=== PATIENT | female | born 1970 | race Caucasian/White ===

== ENCOUNTER 2024-12-14 08:36 | Outpatient (AMB) | payer MEDICARE, MEDICAID, SELFPAY ==
--- NOTE | 2024-12-14 08:40 | MHC.PC.OV ---
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 care. She notes that she her anxiety, depression, and bipolar symptoms are generally well controlled. She has significant family stressors. She is the caregiver of her parents who have significant illness. She endorses passive SI which is chronic. She thinks she is better off so she does not have to deal with current stressors. She denies suicide plan. She denies HI/AVH. Reports frontal headache which is chronic and occurs daily. She takes ibuprofen as needed. Prior PCP? - Dr. Samson, [facility] Last office visit/CPE/labs - 02/2024 Acute issue(s) -None Past Medical History - IBD, sinusitis, asthma, headaches, myopia, gastric ulcer, memory loss, anxiety, depression, bipolar 1 disorder Surgical History - Left knee ACL and meniscus repair, tubal ligation Family History - Dad: Hypertension, alcohol abuse, non-Hodgkin's lymphoma - PGF: Alcohol abuse, skin cancer - PGM: Alcohol abuse - MGF: Alcohol abuse, diabetes Social History - Smokes 3 cigarettes daily, has been smoking that much x 35 years, on Welbutrin. Does not vape. Drinks 1-2 beers twice weekly.Vapes cannabis nightly for sleep. - Has been making healthy dietary choices. Recently started exercising with stationary bike. Reports difficulty falling and staying asleep, sleeps an average of 2 hours nightly, snores but never had a sleep study, declines sleep study Health maintenance - Last eye exam was over a year ago with [facility]. She will schedule an eye appointment with [facility] - Last dental visit was in May or June 2024 - Last tetanus vaccine unknown - Has not been vaccinated for the flu this season; declines vaccination - Last pap smear test was in 04/26/2022 with [facility]: Negative - Last mammogram was in 10/02/2021 with [facility]: Benign. Mammogram ordered - Last colonoscopy was 4 months ago with [facility]: Normal. Will request colonoscopy record for review Specialists - [facility] - Sees a therapist every other week - Sees a PMHMP via telephone once monthly [facility] Medical History (Updated 12/14/24 @ 09:32 by Robert Phillips CNP) Bipolar 1 disorder Depression Anxiety Memory loss Headache IBS (irritable bowel syndrome) Fibromyalgia Sinusitis Asthma Family History (Updated 12/14/24 @ 09:04 by Mandy Worthy MA) Father Alcohol abuse High blood pressure Hodgkin lymphoma Paternal Grandfather Alcohol abuse Skin cancer Paternal Grandmother Alcohol abuse Maternal Grandfather Alcohol abuse Diabetes Social History (Updated 12/14/24 @ 08:54 by Mandy Worthy MA) Housing: House Patient Tobacco Use Status: Current everyday Tobacco user Cigarettes Per Day: 4 e-Cigarette/Vaping Use: Never Used Second Hand Smoke Exposure: No Substance Use Type: Marijuana service: No Current occupational status: employed Current occupation: [employer] Current occupational exposures/hazards: No Cognitive needs: No Hearing needs: No Vision needs: Yes Questionnaire PHQ-9 Over the last 2 weeks, how often have you been bothered by any of the following problems? 1. Little interest or pleasure in doing things: several days 2. Feeling down, depressed, or hopeless: several days 3. Trouble falling or staying asleep, or sleeping too much: more than half the days 4. Feeling tired or having little energy: more than half the days 5. Poor appetite or overeating: more than half the days 6. Feeling bad about yourself - or that you are a failure or have let yourself or your family down: more than half the days 7. Trouble concentrating on things, such as reading the newspaper or watching television: several days 8. Moving or speaking so slowly that other people could have noticed. Or the opposite - being so fidgety or restless that you have been moving around a lot more than usual: several days 9. Thoughts that you would be better off or of hurting yourself in some way: several days Total score: 13 Depression Screening Interpretation: Positive Depression Screening Follow-up: Existing condition and In treatment Depression Screening Done: Yes 45658 - PHQ-9 Billing: Yes Source: Developed by Drs. Triston Mccallum, Nancy Matthew, Nadir Lerma and colleagues, with an educational alla from [employer]. Thrive Questionnaire Date Thrive assessed: 12/14/24 I am a: Patient What is your living situation today?: I have a steady place to live Within the past 12 months, did the food you bought not last and you didn't have the money to get more?: Sometimes True Within the past 12 months, did you worry whether your food would run out before you got money to buy more?: Sometimes True Do you have trouble paying for medicines?: No Do you have trouble getting transportation to medical appointments?: No Do you have trouble paying your heating and electricity bill?: No Do you have trouble taking care of your child, family member or friend?: No Do you have trouble with day-to-day activities such as bathing, preparing meals, shopping, managing finances, etc.?: No Are you currently unemployed and looking for a job?: Yes Are you interested in more education?: No Please select the resources that you would like help with: None Currently or been in a relationship where the following occur: I choose not to answer THRIVE Score: 2 AUDIT C Alcohol Use Questionnaire (AUDIT-C) 1. How often do you have a drink containing alcohol?: 2-4 times a month 2. How many drinks containing alcohol do you have on a typical day when you are drinking?: 1 or 2 3. How often do you have six or more drinks on one occasion?: Less than monthly Total Score: 3 MARYCRUZ-7 AMB Questionnaire MARYCRUZ-7 Date MARYCRUZ - 7 assessed: 12/14/24 Feeling nervous, anxious, or on edge: 2 = More than half the days Not being able to stop or control worryin = More than half the days Worrying too much about different things: 2 = More than half the days Trouble relaxin = More than half the days Being so restless that it is hard to sit still: 1 = Several days Becoming easily annoyed or irritable: 2 = More than half the days Feeling afraid as if something awful might happen: 1 = Several days Total MARYCRUZ-7 score (0-4 normal; 5-9 mild; 10-14 moderate; 15-21 severe): 12 Source: Developed by Drs. Triston Mccallum, Nancy Matthew, Nadir Lerma and colleagues, with an educational alla from [employer]. ACT Questionnaire In the past 4 weeks, how much of the time did your asthma keep you from getting as much done at work, school or at home?: None of the time During the past 4 weeks, how often have you had shortness of breath?: Not at all During the past 4 weeks, how often did your asthma symptoms wake you up at night or earlier than usual in the morning?: Not at all During the past 4 weeks, how often have you had to use your rescue inhaler or nebulizer medication?: Once a week or less How would you rate your asthma control during the past 4 weeks?: Somewhat controlled ACT Interpretation: Negative Score: 22 Review of Systems Const Details: Denies chills, Denies fatigue, Denies fever(s), Reports headache(s) and Denies weakness HEENT Denies change in vision, Denies dizziness, Denies headache(s), Denies hearing loss, Denies nasal congestion, Denies sinus pain, Denies sinus pressure and Denies sore throat Card Denies chest pain, Denies lightheadedness, Denies dyspnea and Denies other (palpitations) Resp Denies cough, Denies dyspnea and Denies wheezing GI Denies abdominal pain, Denies melena, Denies hematochezia, Denies change in bowel habits, Denies dyspepsia and Denies nausea Denies hematuria and Denies dysuria Musc Denies abnormal gait, Denies myalgias, Denies arthralgias, Denies numbness and Denies tingling Skin/Breast Denies rash, Denies unusual bruising and Denies wounds Neuro Denies abnormal gait, Denies dizziness, Reports headache(s), Denies memory loss, Denies numbness, Denies Sensory deficit (Neuro), Denies tingling and Denies weakness Psych Denies anxiety, Denies depression and Denies memory loss Endo Denies cold intolerance, Denies fatigue, Denies heat intolerance, Denies polydipsia and Denies polyuria Waqas/Lymph Denies easy bleeding and Denies easy bruising Aller/Immun Denies wheezing Physical exam (Primary Care) Vital Signs: Last Vital Signs Temp 98.0 F 12/14/24 09:01 Pulse 92 12/14/24 09:01 Resp 16 12/14/24 09:01 BP 137/76 12/14/24 09:01 Pulse Ox 97 12/14/24 09:01 Oxygen Delivery Method Room Air 12/14/24 09:01 BMI result Body Mass Index 30.4 Tobacco/Smoking Status: Tobacco use Status Tobacco use date assessed 12/14/24 12/14/24 09:05 Patient Tobacco Use Status Current everyday Tobacco 12/14/24 09:05 e-Cigarette/Vaping Use Never Used 12/14/24 09:05 PHQ-9: PHQ-9 Score PHQ-9: Total score 13 12/14/24 09:35 Depression Screening Interpretation: Positive Depression Screening Follow-up: Existing condition and In treatment Thrive Assessment: Date of Thrive Assessment Date Thrive assessed 12/14/24 12/14/24 09:05 Currently or been in a relationship where the following occur: I choose not to answer Const Other: General: no acute distress, well developed, alert and awake Nutritional Appearance: well nourished Orientation/consciousness: patient oriented x3 HENMT Head: Yes normocephalic and Yes atraumatic Ears: hearing grossly normal bilaterally and TM's normal bilaterally General nose exam: Normal external nose present and Normal nares present Mouth: Normal oral and palatal mucosa present and moist mucous membranes Teeth and gingiva: dentition normal Throat: Yes oropharynx normal Eyes Pupils: Equal, round and reactive pupils present and Pupil accommodation reflex normal EOM: EOMs intact bilaterally Neck Neck: Yes normal visual inspection, Yes no lymphadenopathy and Yes trachea midline Thyroid: Thyroid normal Carotids: no bruits Lymphatic: no lymphadenopathy noted Chest Chest palpation & inspection: normal inspection of the chest Resp Effort & Inspection: normal respiratory effort Auscultation: clear to auscultation bilaterally Cardio Rate: regular rate Rhythm: regular rhythm Heart sounds: S1 normal heart sound present, S2 normal heart sound present, no gallops, no murmurs and no rubs Bruits: no abdominal aortic bruits and no carotid bruits GI Palpation (GI): No Abdominal aortic bruit present, Soft to palpation, nontender, No hepatosplenomegaly present and No Rebound tenderness present Auscultation: normal bowel sounds General: Yes no CVA tenderness Back/Spine/Pelvis Back: no CVA tenderness Cervical Spine: cervical ROM normal and No Cervical spine tenderness Thoracic/Lumbar Spine: thoraco-lumbar ROM normal, No pain with thoraco-lumbar ROM, No thoracic spinal tenderness and No lumbar spinal tenderness Skin General: warm and dry. Normal skin color. Normal skin turgor Lesions: no lesions Rashes: no rashes Trauma: no lacerations or abrasions Wounds: no wounds Nails: normal Neuro General: patient oriented x3, gait normal and CN's II-XI intact bilaterally Cranial nerves: Yes Equal, round and reactive pupils present Cognition (Neuro): normal cognition Gait exam (Neuro): Normal gait present Motor exam (neuro): 5/5 motor strength present throughout Sensory Exam: No Sensory deficit (Neuro) Deep tendon reflexes (DTR's): Right patellar reflex intensity grade: 2+ and Left patellar reflex intensity grade: 2+ Extrem General: Yes normal to inspection, No edema and No calf tenderness Psych Appearance: grossly normal Affect: normal affect Attitude: cooperative Thought process: Normal thought process present Coding Level of Care Code New Pt Level 3 (45935) New Pt Prev Care 40-64y(41429) Diagnoses Normal physical examination, routine Z00.00 Headache R51.9 Breast cancer screening by mammogram Z12.31 Myopia H52.10 Anxiety F41.9 Depression F32.A Bipolar 1 disorder F31.9 Sleep disturbance G47.9 Smoking 1/2 pack a day or less F17.210 Laboratory tests ordered as part of a complete physical exam (CPE) Z00.00 Additional Codes Asthma Control Questionnaire - ACT Interpretation: Negative ([id number]) PHQ-9 - 85467 - PHQ-9 Billing: Yes ([id number]) Assessment & Plan Assessment & Plan (1) Normal physical examination, routine: Code(s): Z00.00 - Encounter for general adult medical examination without abnormal findings Category: Medical Plan: No significant functional limitations noted except slightly abnormal tandem gait. Continue current treatment regimen. Healthy diet and routine exercise encouraged. Perform lab work and follow-up for a telehealth visit for labs review in 2-4 weeks. Return sooner with symptoms or concerns. Verbalized understanding and agreed with the plan. (2) Headache: Code(s): R51.9 - Headache, unspecified Category: Medical Plan: Reports frontal headache which is chronic and occurs daily. She takes ibuprofen as needed. May take Tylenol or ibuprofen as needed. Follow-up with worsening or new symptoms. Verbalized understanding and agreed with the plan. (3) Breast cancer screening by mammogram: Code(s): Z12.31 - Encounter for screening mammogram for malignant neoplasm of breast Category: Medical Plan: Last mammogram was 1.5 year ago with [facility]: Benign. Mammogram ordered. (4) Myopia: Code(s): H52.10 - Myopia, unspecified eye Category: Medical Plan: Last eye exam was over a year ago with [facility]. She will schedule an eye appointment with [facility]. (5) Anxiety: Code(s): F41.9 - Anxiety disorder, unspecified Category: Medical Plan: She notes that she her anxiety, depression, and bipolar symptoms are generally well controlled. She has significant family stressors. She is the caregiver of her parents who have significant illness. She endorses passive SI which is chronic. She thinks she is better off so she does not have to deal with current stressors. She denies suicide plan. She denies HI/AVH. PHQ-9 and MARYCRUZ-7 scores revealed moderate depression and anxiety. Continue current treatment regimen. Routine exercise encouraged. Follow-up with psychiatrist and therapist as planned. Verbalized understanding and agreed with the plan. (6) Depression: Code(s): F32.A - Depression, unspecified Category: Medical Plan: Plan as above. (7) Bipolar 1 disorder: Code(s): F31.9 - Bipolar disorder, unspecified Category: Medical Plan: Plan as above. (8) Sleep disturbance: Code(s): G47.9 - Sleep disorder, unspecified Category: Medical Plan: Reports difficulty falling and staying asleep. She sleeps an average of 2 hours nightly. She snores but never had a sleep study. Declines sleep study. Instructed on sleep hygiene. Follow-up as needed. Verbalized understanding and agreed with the plan. (9) Smoking 1/2 pack a day or less: Code(s): F17.210 - Nicotine dependence, cigarettes, uncomplicated Category: Social Hx Plan: She smokes 3 cigarettes daily and has been smoking that much x 35 years. She is on Wellbutrin 300 mg daily which she notes helps with smoking cessation. Instructed on the health risks and complications of smoking and cessation encouraged. Follow-up as needed. Verbalized understanding and agreed with the plan. (10) Laboratory tests ordered as part of a complete physical exam (CPE): Code(s): Z00.00 - Encounter for general adult medical examination without abnormal findings Category: Medical Plan: Fasting labs ordered as part of a complete physical exam. Advised to fast for at least 10 hours before getting labs drawn. May drink water Verbalized understanding and agreed with treatment plan. Orders: Orders Complete Blood Count Auto Diff Today Z00.00 - Encounter for general adult medical examination without abnormal findings Comprehensive [place]. Panel Fast Today Z00.00 - Encounter for general adult medical examination without abnormal findings TSH reflex Free T4 Today Z00.00 - Encounter for general adult medical examination without abnormal findings Lipid Panel Today Z00.00 - Encounter for general adult medical examination without abnormal findings Microalbumin, Random (w Creat) Today Z00.00 - Encounter for general adult medical examination without abnormal findings UA CC w/rflx Micro + Cult Today Z00.00 - Encounter for general adult medical examination without abnormal findings Vitamin D 25-OH Total Today Z00.00 - Encounter for general adult medical examination without abnormal findings MM screening mammo BI Today Z12.31 - Encounter for screening mammogram for malignant neoplasm of breast
[2024-12-14 09:01] VITALS: BP 137/76; PULSE 92; RESP 16; TEMP 36.7; O2SAT 97; BMI 30.4
--- OUTSIDE RECORDS SUMMARY | 2024-12-14 10:19 | XMS_ITS | Clinical Summary ---
Author Organization [facility] Address [address] [place] [id number] Phone Care Team Providers Care Director Medicare Sales Name Role Phone Lev Samson MD Primary Care Provider [phone] Allergies Active Allergy Reactions Criticality Noted Date Comments Penicillin Anaphylaxis High 08/28/2022 Medications acetic acid (VOSOL) 2 % otic solution instill 5 DROPS into BOTH EAR THREE TIMES DAILY FOR 7 DAYS 08/23/19 23 Active albuterol 2.5 mg /3 mL (0.083 %) nebulizer solution albuterol sulfate 2.5 mg/3 mL (0.083 %) solution for nebulization INHALE 1 VIAL VIA NEBULIZATION 3 TIMES A DAY NEEDED Active baclofen (LIORESAL) 20 MG tablet baclofen 20 mg tablet TAKE 1 TABLET BY MOUTH ONCE DAILY AT BEDTIME 09/11/19 22 Active cholecalcifero l (VITAMIN D3) 50,000 unit capsule cholecalciferol (vitamin D3) 1,250 mcg (50,000 unit) capsule TAKE 1 CAPSULE BY MOUTH every WEEK Active clonazePAM (KLONOPIN) 1 MG tablet clonazepam 1 mg tablet TAKE 1 TABLET BY MOUTH THREE TIMES DAILY NEEDED FOR ANXIETY 08/21/19 23 Active cyanocobalamin , vitamin B-12, 1000 MCG tablet cyanocobalamin (vit B-12) 1,000 mcg tablet TAKE 1 TABLET BY MOUTH ONCE DAILY Active divalproex (DEPAKOTE ER) 250 MG ER 24 hr tablet divalproex ER 250 mg tablet,extended release 24 hr TAKE 3 TABLETS BY MOUTH ONCE DAILY 08/21/19 23 Active DULoxetine (CYMBALTA) 30 MG capsule Take 2 capsules by mouth every morning. 08/21/19 23 Active fluticasone propionate (FLONASE) 50 mcg/actuation nasal spray fluticasone propionate 50 mcg/actuation nasal spray,suspension instill 2 SPRAYS IN BOTH nostrils DAILY IN THE am 03/07/20 21 Active montelukast (SINGULAIR) 10 mg tablet Take 10 mg by mouth. 09/11/19 22 Active naproxen (EC NAPROSYN) 500 MG EC tablet Take 500 mg by mouth. 12/27/19 22 Active nitrofurantoin (MACROBID) 100 MG capsule TAKE 1 CAPSULE BY MOUTH TWICE DAILY FOR 5 DAYS WITH food 08/17/19 23 Active traZODone (DESYREL) 100 MG tablet trazodone 100 mg tablet TAKE 3 TABLETS BY MOUTH DAILY AT BEDTIME 08/21/19 23 Active loratadine (CLARITIN) 10 mg tablet Take 10 mg by mouth daily. Active Active Problems Problem Noted Date Diagnosed Date Alcohol abuse 08/28/2022 08/28/2022 Allergic rhinitis 08/28/2022 08/28/2022 Anemia 08/28/2022 08/28/2022 Anxiety 08/28/2022 08/28/2022 Asthma 08/28/2022 08/28/2022 Benign neoplasm of meninges 08/28/202207/31 Cobalamin deficiency 08/28/2022 08/28/2022 Depressive disorder 08/28/2022 08/28/2022 Fatty liver 08/28/2022 08/28/2022 Fibromyalgia 08/28/2022 08/28/2022 Gastroesophageal reflux disease 08/28/2022 08/28/2022 Gastritis 08/28/2022 08/28/2022 Gastroparesis 08/28/2022 08/28/2022 Vitamin D deficiency 08/28/2022 08/28/2022 Tobacco user 08/28/2022 08/28/2022 Posttraumatic stress disorder 08/28/2022 Neuropathic pain 08/28/2022 08/28/2022 Migraine 08/28/2022 08/28/2022 Manic bipolar I disorder 08/28/2022 023 Irritable bowel 08/28/2022 08/28/2022 Social History Tobacco Use Types Packs/Day Years Used Date Smoking Tobacco: Every Day Cigarettes Smokeless Tobacco: Never Tobacco Cessation:Ready to Q uit: Not Asked; Counseling Given: Not Answered Education Answer Date Recorded Are you interested in more education? Not on halley e 08/28/2022 Are you concerned about learning? Not on file 08/28/2022 No 08/28/2022 No 08/28/2022 Digital Access Answer Date Recorded No 08/28/2022 No 08/28/2022 Reliable internet access at home? Not on file 08/28/2022 Device with a working camera? Not on file Comments Unknown Sex and Gender Information Value Date Recorded Sex Assigned at Not on file Legal Sex Female 5:33 PM EST Gender Identity Not on file Sexual Orientation Not on file Last Filed Vital Signs Vital Sign Reading Time Taken Comments Blood Pressure 132/96 01/31/2023 6:23 PM EDT Pulse 77 01/31/2023 6:23 PM EDT Temperature 36.4 C (97.6 F) 01/31/2023 6:23 PM EDT Respiratory Rate 16 01/31/2023 6:23 PM EDT Oxygen Saturation 100% 01/31/2023 6:23 PM EDT Inhaled Oxygen Concentration - - Weight 65.8 kg (145 lb) 08/28/2022 12:36 PM EDT Height 162.6 cm (5' 4 ) 08/28/2022 12:36 PM EDT Body Mass Index 24.89 08/28/2022 12:36 PM EDT Plan of Treatment Health Maintenance Due Date Last Done Comments Adult Td,Tdap Booster 1971 LIPID PANEL 1971 VALPROIC ACID (DEPAKENE) LEVEL 1971 DEPRESSION SCREENING 1983 SMOKING Hx and SMOKELESS TOB ACCO SCREENING 02/13/1984 HEPATITIS C SCREENING 1989 HIV ONE-TIME SCREENING (18-6 5 YEARS) 1989 PNEUMOCOCCAL VACCINES (50+ y ears) (1 of 2 - PCV) 1990 PAP SMEAR 02/13/1992 MAMMOGRAM 2011 COLOGUARD 02/13/2016 COLONOSCOPY 02/13/2016 COLORECTAL CANCER SCREENING 02/13/2016 FIT TEST 02/13/2016 FOBT 02/13/2016 SIGMOIDOSCOPY 02/13/2016 VIRTUAL COLONOSCOPY 02/13/2016 ZOSTER VACCINES (1 of 2) 2021 INFLUENZA VACCINE (#1) 2024 COVID-19 VACCINE (2023-2 5 season) 2024 HEPATITIS A VACCINES Aged Out No long er eligible based on patient's age to complete this topic HIB VACCINES Aged Out No longer eligi ble based on patient's age to complete this topic MENINGOCOCCAL VACCINES (ACWY) Aged Out No longer eligible based on patient's age to complete this topic MENINGOCOCCAL VACCINES (B) Aged Out N o longer eligible based on patient's age to complete this topic Medical Devices Not on file Insurance [facility] & [facility] & B [facility] A & [facility] PART [facility] B [facility] MEDIC[facility] PART A & B [facility] MEDIC[facility] PART A & B Care Teams Director Medicare Sales Relationship Specialty Start Date End Date Lev Samson MD [address] [place] [id number] PCP - General Internal Medicine 08/28/22 Additional Source Comments The information contained in this document represents components of the legal health record. It is not the complete legal health record.[facility]
== END 2024-12-14 09:35 | disposition home or self-care (01) ==
LOC: HO.HMCFM 08:37
PROVIDERS: PCP Nurse Practitioner Family; Visit Provider Nurse Practitioner Family
DX: R51.9 Headache, unspecified (principal); F31.9 Bipolar disorder, unspecified; F41.9 Anxiety disorder, unspecified; Z12.31 Encounter for screening mammogram for malignant neoplasm of breast; G47.9 Sleep disorder, unspecified; H52.10 Myopia, unspecified eye; F32.A Depression, unspecified; F17.210 Nicotine dependence, cigarettes, uncomplicated

== ENCOUNTER 2024-12-14 08:36 | Outpatient (REF) | payer MEDICARE, SELFPAY ==
[2024-12-14 11:46] LABS: MANUAL DIFF FLAG NO
[2024-12-14 11:54] LABS: Hematocrit 39.0 % (37.0-47.0); Hemoglobin 13.8 g/dl (12.0-16.0); Imm Gran Abs Auto 0.01 X10*3/uL (0.00-0.03); Imm Gran Pct Auto 0.2 % (0.0-0.4); Lymphocytes Absolute Auto 1.4 X10*3/uL (1.2-4.9); Mean Corpuscular HGB Conc 35.4 g/dl (31.0-35.0); Mean Corpuscular Hemoglobin 33.1 pg (27.0-33.0); Mean Corpuscular Volume 93.5 fL (80.0-98.0); NRBC Abs Auto 0.000 X10*3/uL (0.0-0.012); NRBC Pct Auto 0.0 /100WBC (0.0-0.2); Platelet Count 289 X10*3/uL (160-400); Red Blood Count 4.17 X10*6/uL (4.20-5.50); White Blood Count 4.3 X10*3/uL (4.8-10.8)
[2024-12-14 12:47] LABS: Alanine Aminotransferase 31 U/L (0-31); Albumin Level 4.7 g/dL (3.5-5.0); Alkaline Phosphatase 108 U/L (39-117); Anion Gap 12 (12-20); Aspartate Amino Transferase 32 U/L (5-31); Blood Urea Nitrogen 8 mg/dL (9-16); Calcium 9.9 mg/dL (8.4-10.2); Carbon Dioxide 32 mmol/L (22-29); Chloride 100 mmol/L (96-108); Cholesterol 203 mg/dL (<200); Estimated Glomerular Filt Rate > 60; HDL Cholesterol 73 mg/dL (>40); Potassium 4.3 mmol/L (3.3-5.1); Sodium 140 mmol/L (135-145); Total Protein 7.4 g/dL (6.5-8.0); Triglycerides 60 mg/dL (<150)
[2024-12-14 14:54] LABS: Appearance Urine Clear; Glucose Urine UA Negative (Negative); PH 8.0 (5.0-9.0); Specific Gravity - Urine <= 1.005 (1.005-1.025)
== END 2024-12-14 08:37 | disposition home or self-care (01) ==
LOC: HO.WFDLDS 08:36
PROVIDERS: PCP Nurse Practitioner Family; Visit Provider Nurse Practitioner Family
DX: Z00.00 Encounter for general adult medical examination without abnormal findings (principal); Z13.6 Encounter for screening for cardiovascular disorders; R51.9 Headache, unspecified; H52.10 Myopia, unspecified eye; F41.9 Anxiety disorder, unspecified; F32.A Depression, unspecified; G47.9 Sleep disorder, unspecified; F17.210 Nicotine dependence, cigarettes, uncomplicated; Z71.6 Tobacco abuse counseling
CPT/HCPCS: 36415; 80053; 80061; 81003; 82043; 82306; 82570; 84443; 85025; 96127; 96160; 99202

== ENCOUNTER 2025-01-03 10:01 | Outpatient (AMB) | payer MEDICARE, MEDICAID, SELFPAY ==
--- NOTE | 2025-01-03 10:16 | A.OFFPC_ITS ---
Vital Signs 01/03/25 10:22 Height 5 ft 4 in Weight 177 lb 2 oz BMI 30.4 BP 138/77 Blood Pressure Location Rt brachial Position Sitting Respiration 16 Pulse 75 Pulse Source Pulse Oximeter Temp 97.9 F Temp Source Oral Pulse Oximetry (%) 98 Oxygen Delivery Method Room Air Intake Visit Reasons: Tele 2-4 wks labs review Intake Note: patient here for 2-4 wks labs review Information Services Consultant Required: No Is last menstrual period known: No Post menopausal: No Patient : No Allergies No Known Allergies Allergy (Verified 01/03/25 10:21) Tobacco use date assessed: 01/03/25 Dental Screening Dental Screen Date: 01/03/25 Did you have a dental visit in the last 12 months?: Yes Did you have a dental problem in the last 6 months where you did not have access to dental care?: No Was dental information given to patient?: Patient has dentist HPI HPI Comments History of Present Illness Details 54-year-old female presents for review of recent lab results. She admits to taking her medications as prescribed without adverse reactions. Reports pain to Dupuytren's contracture of the left hand; she went to an orthopedic urgent care 2 days ago and received cortisone injection. She is followed by [facility] and will call them to schedule a follow-up appointment. [facility] Medical History (Updated 01/03/25 @ 10:17 by Robert Phillips CNP) Bipolar 1 disorder Depression Anxiety Memory loss Headache IBS (irritable bowel syndrome) Fibromyalgia Sinusitis Asthma Family History (Updated 12/14/24 @ 09:04 by Mandy Worthy MA) Father Alcohol abuse High blood pressure Hodgkin lymphoma Paternal Grandfather Alcohol abuse Skin cancer Paternal Grandmother Alcohol abuse Maternal Grandfather Alcohol abuse Diabetes Social History (Updated 12/14/24 @ 08:54 by Mandy Worthy MA) Housing: House Patient Tobacco Use Status: Current everyday Tobacco user Cigarettes Per Day: 4 e-Cigarette/Vaping Use: Never Used Second Hand Smoke Exposure: No Substance Use Type: Marijuana service: No Current occupational status: employed Current occupation: [employer] Current occupational exposures/hazards: No Cognitive needs: No Hearing needs: No Vision needs: Yes Questionnaire Thrive Questionnaire Date Thrive assessed: 12/14/24 I am a: Patient What is your living situation today?: I have a steady place to live Within the past 12 months, did the food you bought not last and you didn't have the money to get more?: Sometimes True Within the past 12 months, did you worry whether your food would run out before you got money to buy more?: Sometimes True Do you have trouble paying for medicines?: No Do you have trouble getting transportation to medical appointments?: No Do you have trouble paying your heating and electricity bill?: No Do you have trouble taking care of your child, family member or friend?: No Do you have trouble with day-to-day activities such as bathing, preparing meals, shopping, managing finances, etc.?: No Are you currently unemployed and looking for a job?: Yes Are you interested in more education?: No Please select the resources that you would like help with: None Currently or been in a relationship where the following occur: I choose not to answer THRIVE Score: 2 MARYCRUZ-7 AMB Questionnaire MARYCRUZ-7 Date MARYCRUZ - 7 assessed: 12/14/24 Source: Developed by Drs. Triston Mccallum, Nancy Matthew, Nadir Lerma and colleagues, with an educational alla from [employer]. Review of Systems Const Details: Const Denies chills, Denies fatigue, Denies fever(s), Denies headache(s) and Denies weakness ENT Denies dizziness and Denies headache(s) Card Denies chest pain, Denies lightheadedness, Denies dyspnea and Denies other (Palpitations) Resp Denies cough, Denies dyspnea, Denies wheezing and Denies other ( shortness of breath) GI Denies abdominal pain, Denies melena, Denies hematochezia, Denies change in bowel habits, Denies dyspepsia and Denies nausea Denies hematuria and Denies dysuria Musc Reports as per HPI Skin/Breast Denies rash, Denies unusual bruising and Denies wounds Neuro Denies abnormal gait, Denies dizziness, Denies headache(s), Denies memory loss, Denies numbness, Denies Sensory deficit (Neuro), Denies tingling and Denies weakness Psych Denies anxiety, Denies depression, Denies memory loss Endo Denies cold intolerance, Denies fatigue, Denies heat intolerance, Denies polydipsia and Denies polyuria Aller/Immun Denies wheezing Physical exam (Primary Care) Tobacco/Smoking Status: Tobacco use Status Tobacco use date assessed 12/14/24 12/14/24 09:05 Patient Tobacco Use Status Current everyday Tobacco 12/14/24 09:05 e-Cigarette/Vaping Use Never Used 12/14/24 09:05 Thrive Assessment: Date of Thrive Assessment Date Thrive assessed 12/14/24 12/14/24 09:05 Currently or been in a relationship where the following occur: I choose not to answer Const Other: General: no acute distress and well developed Nutritional Appearance: well nourished Orientation/consciousness: patient oriented x3 HENMT Head: Yes normocephalic and Yes atraumatic Eyes General: appearance normal, both eyes and all related structures Pupils: Equal, round and reactive pupils present EOM: EOMs intact bilaterally Resp Effort & Inspection: normal respiratory effort Auscultation: clear to auscultation bilaterally Cardio Rate: regular rate Rhythm: regular rhythm Heart sounds: S1 normal heart sound present, S2 normal heart sound present, no gallops, no murmurs and no rubs GI Palpation (GI): No Abdominal aortic bruit present, Soft to palpation, nontender, No hepatosplenomegaly present and No Rebound tenderness present Auscultation: normal bowel sounds General: Yes no CVA tenderness Back/Spine/Pelvis Back: no CVA tenderness Cervical Spine: cervical ROM normal and No Cervical spine tenderness Thoracic/Lumbar Spine: thoraco-lumbar ROM normal, No pain with thoraco-lumbar ROM, No thoracic spinal tenderness and No lumbar spinal tenderness Extrem General: Yes normal to inspection, No edema and No calf tenderness Skin General: warm and dry. Normal skin color. Normal skin turgor Neuro General: patient oriented x3, gait normal and no focal neuro deficit Cranial nerves: Yes Equal, round and reactive pupils present Cognition (Neuro): normal cognition Gait exam (Neuro): Normal gait present Sensory Exam: No Sensory deficit (Neuro) Psych Appearance: grossly normal Affect: normal affect Attitude: cooperative Thought process: Normal thought process present Coding Level of Care Code Est Pt Level 3 (20427) Diagnoses Hypercholesterolemia E78.00 Elevated AST (SGOT) R74.01 Leukocytopenia D72.819 Assessment & Plan Assessment & Plan (1) Hypercholesterolemia: Code(s): E78.00 - Pure hypercholesterolemia, unspecified Category: Medical Plan: Recent total cholesterol and LDL levels a slightly elevated, 203 and 118 respectively, triglycerides and HDL levels are normal. Advised to limit foods high in saturated fat and avoid foods high in trans fat. Routine exercise encouraged. Fast for 10-12 hours, may drink water, and performed lipid panel blood work a few days before next visit. Follow-up for telehealth visit in 2 months. Return sooner with symptoms or concerns. Verbalized understanding and agreed with the plan. (2) Elevated AST (SGOT): Code(s): R74.01 - Elevation of levels of liver transaminase levels Category: Medical Plan: Recent AST level is slightly elevated, 32, normal ALT and bilirubin level. She reports slightly elevated AST since she started taking Depakote. Healthy diet/weight management encouraged. Will recheck liver panel in 2 months. Verbalized understanding and agreed with the plan. (3) Leukocytopenia: Code(s): D72.819 - Decreased white blood cell count, unspecified Category: Medical Plan: Recent WBC slightly low, 4.3. CBC is otherwise unrevealing. Will monitor CBC annually as needed. Verbalized understanding and agreed with the plan.
[2025-01-03 10:22] VITALS: BP 138/77; PULSE 75; RESP 16; TEMP 36.6; O2SAT 98; BMI 30.4
--- OUTSIDE RECORDS SUMMARY | 2025-01-03 11:39 | XMS_ITS | Clinical Summary ---
Author Organization [facility] Address [address] [place] [id number] Phone Care Team Providers Care Esthetician And Manager Medical Spa Name Role Phone Lev Samson MD Primary Care Provider [phone] Allergies Active Allergy Reactions Criticality Noted Date [...] topic Medical Devices Not on file Insurance [facility] & B [facility] PART [facility] & B [facility] PART A & B [facility] PART A & B [facility] MEDIC[facility] PART A & B [facility] MEDICARE PART A & B Care Teams Esthetician And Manager Medical Spa Relationship Specialty Start Date End Date Lev Samson MD [address] [place] [id number] PCP - General Internal Medicine 08/28/22 Additional Source Comments The information contained in this document represents components of the legal health record. It is not the complete legal health record.[facility]
== END 2025-01-03 12:27 | disposition home or self-care (01) ==
LOC: HO.HMCFM 10:02
PROVIDERS: PCP Nurse Practitioner Family; Visit Provider Nurse Practitioner Family
DX: E78.00 Pure hypercholesterolemia, unspecified (principal); R74.01 Elevation of levels of liver transaminase levels; D72.819 Decreased white blood cell count, unspecified

== ENCOUNTER → 2025-01-03 10:01 | Outpatient (BNVA) | payer MEDICARE, SELFPAY | PROVIDERS: PCP Nurse Practitioner Family; Visit Provider Nurse Practitioner Family | DX: M72.0 Palmar fascial fibromatosis [Dupuytren] (principal); E78.00 Pure hypercholesterolemia, unspecified; R74.01 Elevation of levels of liver transaminase levels; D72.819 Decreased white blood cell count, unspecified | CPT/HCPCS: 99212 ==

== ENCOUNTER 2025-03-14 11:37 | Outpatient (AMB) | payer MEDICARE, MEDICAID, SELFPAY ==
--- NOTE | 2025-03-14 11:47 | MHC.PC.OV ---
Vital Signs 03/14/25 11:48 Height 5 ft 4 in Weight 173 lb BMI 29.7 BP 116/80 Blood Pressure Location Rt brachial Position Sitting Respiration 14 Pulse 81 Pulse Source Pulse Oximeter Temp 97.7 F Temp Source Oral Pulse Oximetry (%) 97 Oxygen Delivery Method Room Air Intake Visit Reasons: 2 months hypercholesterolemia, elevated AST Intake Note: Two month follow up Dolphin Researcher Required: No Allergies Penicillins Allergy (Unknown, Verified 03/14/25 11:51) Unknown Tobacco use date assessed: 03/14/25 Dental Screening Dental Screen Date: 01/03/25 HPI HPI Comments History of Present Illness Details 55-year-old female presents for hypercholesterolemia, and elevated AST follow-up. She admits to taking her medications as prescribed without adverse reactions. Lipid and liver panel labs were inadvertently not ordered and therefore were done. She has been fasting for at least 10 hours and perform blood work after this visit. She notes that she presented to [facility] on 01/29/2025 for for suicide attempt by taking more than prescribed prescription medications and drinking significant amout of alcohol. She was transferred to [facility] where she was hospitalized for 2 and a half week. She was discharged after some medication changes. Also, she was started on vivitrol which she has been getting IM monthly. She established with a psychiatrist with [facility] and is scheduled to have vivitrol injection with them on this week. She attends group therapy at [facility] three times weekly. She notes that she feels same, anxious, depressed, since discharged from [facility]. She finds the group helpful. She notes that her anxiety and depression will always be the same, moderate to high. She denies SI/HI/AVH at this time. [facility] Medical History (Updated 01/03/25 @ 10:17 by Robert Phillips CNP) Bipolar 1 disorder Depression Anxiety Memory loss Headache IBS (irritable bowel syndrome) Fibromyalgia Sinusitis Asthma Family History (Updated 12/14/24 @ 09:04 by ANDREA Mcgee) Father Alcohol abuse High blood pressure Hodgkin lymphoma Paternal Grandfather Alcohol abuse Skin cancer Paternal Grandmother Alcohol abuse Maternal Grandfather Alcohol abuse Diabetes Social History (Updated 12/14/24 @ 08:54 by ANDREA Mcgee) Housing: House Patient Tobacco Use Status: Current everyday Tobacco user Cigarettes Per Day: 4 Years Smoked: unknown ( A long time ) e-Cigarette/Vaping Use: Never Used Second Hand Smoke Exposure: No Substance Use Type: Marijuana service: No Current occupational status: employed Current occupation: [employer] Current occupational exposures/hazards: No Cognitive needs: No Hearing needs: No Vision needs: Yes Questionnaire PHQ-9 Over the last 2 weeks, how often have you been bothered by any of the following problems? 1. Little interest or pleasure in doing things: nearly every day 2. Feeling down, depressed, or hopeless: nearly every day 3. Trouble falling or staying asleep, or sleeping too much: nearly every day 4. Feeling tired or having little energy: nearly every day 5. Poor appetite or overeating: nearly every day 6. Feeling bad about yourself - or that you are a failure or have let yourself or your family down: nearly every day 7. Trouble concentrating on things, such as reading the newspaper or watching television: several days 8. Moving or speaking so slowly that other people could have noticed. Or the opposite - being so fidgety or restless that you have been moving around a lot more than usual: not at all 9. Thoughts that you would be better off or of hurting yourself in some way: not at all (when pt was in the hospital) Total score: 19 Depression Screening Interpretation: Positive Depression Screening Follow-up: Existing condition and In treatment Depression Screening Done: Yes 44130 - PHQ-9 Billing: Yes Source: Developed by Drs. Triston Mccallum, Nancy Matthew, Nadir Lerma and colleagues, with an educational alla from [employer]. Thrive Questionnaire Date Thrive assessed: 12/14/24 I am a: Patient What is your living situation today?: I have a steady place to live Within the past 12 months, did the food you bought not last and you didn't have the money to get more?: Sometimes True Within the past 12 months, did you worry whether your food would run out before you got money to buy more?: Sometimes True Do you have trouble paying for medicines?: No Do you have trouble getting transportation to medical appointments?: No Do you have trouble paying your heating and electricity bill?: No Do you have trouble taking care of your child, family member or friend?: No Do you have trouble with day-to-day activities such as bathing, preparing meals, shopping, managing finances, etc.?: No Are you currently unemployed and looking for a job?: Yes Are you interested in more education?: No Please select the resources that you would like help with: None Currently or been in a relationship where the following occur: I choose not to answer THRIVE Score: 2 AUDIT C Alcohol Use Questionnaire (AUDIT-C) 1. How often do you have a drink containing alcohol?: Never (stopped drinking January 29 2025) 3. How often do you have six or more drinks on one occasion?: Never Total Score: 0 MARYCRUZ-7 AMB Questionnaire MARYCRUZ-7 Date MARYCRUZ - 7 assessed: 03/14/25 Feeling nervous, anxious, or on edge: 3 = Nearly every day Not being able to stop or control worryin = Nearly every day Worrying too much about different things: 3 = Nearly every day Trouble relaxin = Not at all Being so restless that it is hard to sit still: 0 = Not at all Becoming easily annoyed or irritable: 1 = Several days Feeling afraid as if something awful might happen: 1 = Several days Total MARYCRUZ-7 score (0-4 normal; 5-9 mild; 10-14 moderate; 15-21 severe): 11 Source: Developed by Drs. Triston Mccallum, Nancy Matthew, Nadir Lerma and colleagues, with an educational alla from [employer]. MARYCRUZ-7 Assessment Billing MARYCRUZ-7 Assessment Tool: MARYCRUZ-7 Assessment 18710 Review of Systems Const Details: Const Denies chills, Denies fatigue, Denies fever(s), Denies headache(s) and Denies weakness ENT Denies dizziness and Denies headache(s) Card Denies chest pain, Denies lightheadedness, Denies dyspnea and Denies other (Palpitations) Resp Denies cough, Denies dyspnea, Denies wheezing and Denies other ( shortness of breath) GI Denies abdominal pain, Denies melena, Denies hematochezia, Denies change in bowel habits, Denies dyspepsia and Denies nausea Denies hematuria and Denies dysuria Musc Denies abnormal gait, Denies myalgias, Denies arthralgias, Denies numbness and Denies tingling Skin/Breast Denies rash, Denies unusual bruising and Denies wounds Neuro Denies abnormal gait, Denies dizziness, Denies headache(s), Denies memory loss, Denies numbness, Denies Sensory deficit (Neuro), Denies tingling and Denies weakness Psych Reports anxiety, reports depression, Denies memory loss Endo Denies cold intolerance, Denies fatigue, Denies heat intolerance, Denies polydipsia and Denies polyuria Aller/Immun Denies wheezing Physical exam (Primary Care) Vital Signs: Last Vital Signs Temp 97.7 F 03/14/25 11:48 Pulse 81 03/14/25 11:48 Resp 14 03/14/25 11:48 BP 116/80 03/14/25 11:48 Pulse Ox 97 03/14/25 11:48 Oxygen Delivery Method Room Air 03/14/25 11:48 BMI result Body Mass Index 29.7 Tobacco/Smoking Status: Tobacco use Status Tobacco use date assessed 03/14/25 03/14/25 11:53 Patient Tobacco Use Status Current everyday Tobacco 03/14/25 11:49 e-Cigarette/Vaping Use Never Used 03/14/25 11:49 PHQ-9: PHQ-9 Score PHQ-9: Total score 19 03/14/25 12:25 Depression Screening Interpretation: Positive Depression Screening Follow-up: Existing condition and In treatment Thrive Assessment: Date of Thrive Assessment Date Thrive assessed 12/14/24 03/14/25 11:49 Currently or been in a relationship where the following occur: I choose not to answer Const Other: General: no acute distress, well developed, alert and awake Nutritional Appearance: well nourished Orientation/consciousness: patient oriented x3 HENMT Head: Yes normocephalic and Yes atraumatic Ears: hearing grossly normal bilaterally and TM's normal bilaterally General nose exam: Normal external nose present and Normal nares present Mouth: Normal oral and palatal mucosa present and moist mucous membranes Teeth and gingiva: dentition normal Throat: Yes oropharynx normal Eyes Pupils: Equal, round and reactive pupils present and Pupil accommodation reflex normal EOM: EOMs intact bilaterally Neck Neck: Yes normal visual inspection, Yes no lymphadenopathy and Yes trachea midline Thyroid: Thyroid normal Carotids: no bruits Lymphatic: no lymphadenopathy noted Chest Chest palpation & inspection: normal inspection of the chest Resp Effort & Inspection: normal respiratory effort Auscultation: clear to auscultation bilaterally Cardio Rate: regular rate Rhythm: regular rhythm Heart sounds: S1 normal heart sound present, S2 normal heart sound present, no gallops, no murmurs and no rubs Bruits: no abdominal aortic bruits and no carotid bruits Skin General: warm and dry. Normal skin color. Normal skin turgor Neuro General: patient oriented x4, gait normal Extrem General: Yes normal to inspection, No edema and No calf tenderness Psych Appearance: grossly normal Mood: depressed Affect: Restricted Attitude: cooperative Thought process: Linear. No SI Coding Level of Care Code Est Pt Level 4 (03618) Diagnoses Hypercholesterolemia E78.00 Elevated AST (SGOT) R74.01 Bipolar 1 disorder F31.9 Anxiety F41.9 Depression F32.A Additional Codes MARYCRUZ-7 Assessment Billing - MARYCRUZ-7 Assessment Tool: MARYCRUZ-7 Assessment 41133 ([id number]) PHQ-9 - 82149 - PHQ-9 Billing: Yes ([id number]) Assessment & Plan Assessment & Plan (1) Hypercholesterolemia: Code(s): E78.00 - Pure hypercholesterolemia, unspecified Category: Medical Plan: Lipid and liver panel labs were inadvertently not ordered and therefore were done. She has been fasting for at least 10 hours and perform blood work after this visit. Healthy diet and routine exercise encouraged. Perform lab workup plan. Will review results and make changes as needed. Verbalized understanding and agreed with the plan. (2) Elevated AST (SGOT): Code(s): R74.01 - Elevation of levels of liver transaminase levels Category: Medical Plan: Plan as above. (3) Bipolar 1 disorder: Code(s): F31.9 - Bipolar disorder, unspecified Category: Medical Plan: Patient was recently discharged from his [facility] following two and a half week hospitalization for suicide attempt by taking more than prescribed medications and drinking excessive amount of alcohol. She notes that she feels same, anxious, depressed, since discharged from [facility]. She finds the group helpful. She notes that her anxiety and depression will always be the same, moderate to high. She denies SI/HI/AVH at this time. PHQ-9 and MARYCRUZ-7 scores revealed moderately severe depression and moderate anxiety respectively. Continue current treatment regimen. Healthy diet and routine exercise encouraged. Encouraged to continue groups and follow-up with psychiatrist as planned. Follow-up in 1-2 months for transfer of care with a new provider within the practice. Return sooner with symptoms or concerns. Verbalized understanding and agreed with the plan. The MAC reconciled the patient's medications from the pharmacy. (4) Anxiety: Code(s): F41.9 - Anxiety disorder, unspecified Category: Medical Plan: Plan as above. (5) Depression: Code(s): F32.A - Depression, unspecified Category: Medical Plan: Plan as above. Orders: Orders Lipid Panel Today E78.00 - Pure hypercholesterolemia, unspecified Liver Panel Today R74.01 - Elevation of levels of liver transaminase levels
[2025-03-14 11:48] VITALS: BP 116/80; PULSE 81; RESP 14; TEMP 36.5; O2SAT 97; BMI 29.7
== END 2025-03-14 12:16 | disposition home or self-care (01) ==
LOC: HO.HMCFM 11:38
PROVIDERS: PCP Nurse Practitioner Family; Visit Provider Nurse Practitioner Family
DX: E78.00 Pure hypercholesterolemia, unspecified (principal); R74.01 Elevation of levels of liver transaminase levels; F31.9 Bipolar disorder, unspecified; F41.9 Anxiety disorder, unspecified; F32.A Depression, unspecified

== ENCOUNTER → 2025-03-14 11:37 | Outpatient (BNVA) | payer MEDICARE, SELFPAY | PROVIDERS: PCP Nurse Practitioner Family; Visit Provider Nurse Practitioner Family | DX: E78.00 Pure hypercholesterolemia, unspecified (principal); R74.01 Elevation of levels of liver transaminase levels; F31.9 Bipolar disorder, unspecified; F41.9 Anxiety disorder, unspecified; Z13.31 Encounter for screening for depression; Z13.39 Encounter for screening examination for other mental health and behavioral disorders | CPT/HCPCS: 96127; 99212 ==